=== PATIENT | female | born 1980 | race Two or more races ===

== ENCOUNTER 2019-03-11 07:58 | Emergency (ER) | payer OTHER ==
[~2019-03-11] VITALS: Ht 165.1 cm; Wt 56.7 kg
[~2019-03-11 07:58] MED LIST: KETO10TA2 PO
[2019-03-11] MEDS ORDERED: NORFLEX100MG PO (12:21)
[2019-03-11] MEDS ORDERED: NAPROXEN500 MG PO (12:21)
== END 2019-03-11 12:38 | disposition home or self-care (01) ==
LOC: ER 07:58
DX: M62.838 Other muscle spasm (principal)